=== PATIENT | male | born 1930 | race Caucasian/White ===

== ENCOUNTER → 2017-05-03 | Day surgery (SDC) | payer OTHER ==
[2017-05-02 16:45] LABS: BASOPHILS # (AUTO) 0.1 (0.0-0.1); BASOPHILS % 0.7 % (0.0-1.0); EOSINOPHILS # (AUTO) 0.4 (0.0-0.4); EOSINOPHILS % 4.4 % (0.0-6.0); HEMATOCRIT 44.4 % (38.2-49.6); HEMOGLOBIN 14.4 g/dL (14.0-18.0); LYMPHOCYTES # (AUTO) 2.2 (1.0-3.2); LYMPHOCYTES % 27.3 % (18.0-39.1); MEAN CORPUSCULAR HGB CONC 32.4 g/dL (31-35); MEAN CORPUSCULAR VOLUME 95.5 fL (81-99); MONOCYTES # (AUTO) 0.6 (0.2-0.8); MONOCYTES % 7.1 % (4.4-11.3); NEUTROPHILS # (AUTO) 4.9 (2.1-6.9); NEUTROPHILS % 60.3 % (38.7-80.0); PLATELET COUNT 248 x10e3/uL (140-360); RED BLOOD COUNT 4.65 x10e6/uL (4.3-5.7); RED CELL DISTRIBUTION WIDTH 14.2 % (11.7-14.4)
--- NOTE | 2017-05-02 16:49 | Diagnostic Imaging Report ---
PROCEDURE: Frontal and lateral views of the chest. COMPARISON: Chest radiograph 05/14/2013 INDICATIONS: PREOP - LEFT HAND SX FINDINGS: Lines/tubes: None. Lungs: The lungs are well inflated and clear. There is no evidence of pneumonia or pulmonary edema. Pleura: There is no pleural effusion or pneumothorax. Heart and mediastinum: Tortuous aorta. Otherwise, the heart and the mediastinum are unremarkable. Bones: No acute bony abnormality. IMPRESSION: No acute cardiopulmonary disease. Dictated by: Chago Mckeon M.D. on 05/02/2017 at 16:48 Electronically approved by: Chago Mckeon M.D. on 05/02/2017 at 16:48
[2017-05-02 16:55] LABS: INR 0.99; PROTHROMBIN TIME 12.3 seconds (11.9-14.5)
[2017-05-02 16:56] LABS: PARTIAL THROMBOPLASTIN TIME 33.6 seconds (23.8-35.5)
[~2017-05-03] MED LIST: ALLOPURINOL100 MG PO; ASPIRIN81 MG PO; BUPIVACAINE HCL 0.5% INJ 30 ML VIAL INJ ONE; CEFAZOLIN SOD 1 GM VIAL ONE; DESFLURANE 240 ML BTL INH ONE; DEXAMETHASONE SOD PHOS INJ 4 MG/ML VIAL ONE; FENOFIBRATE145 MG PO; FENTANYL CITRATE/PF 100MCG/2 ML INJ ONE; LIDOCAINE HCL 2% LOCAL INJ 5 ML SDV VIAL INJ ONE; ONDANSETRON HCL INJ 2 MG/ML VIAL ONE; PROPOFOL IV EMULSION 10 MG/ML 20 ML VIAL ONE
--- OUTSIDE RECORDS SUMMARY | 2017-05-03 09:44 | XMS REPORT ---
Author Author [facility] Address Unknown Phone Unavailable Care Team Providers Care Motor Vehicle License Clerk Name Role Phone PATY CRUZ Unavailable Unavailable Problems This patient has no known problems. Allergies, Adverse Reactions, Alerts This patient has no known allergies or adverse reactions. Medications This patient has no known medications. Results Test Description Test Time Test Comments Text Results Atomic Results Result Comments CHEST 2 VIEWS [place] [address] Patient Name: REHANA TIPTON MR #: [id number] : 1930 Age/Sex: 86/M Req # : [id number] Adm Physician: Ordered by: PATY CRUZ MD Report #: [id number] Location: OR Room/Bed: Procedure: [id number] DX/CHEST 2 VIEWS Exam Date: Exam Time: REPORT STATUS: Signed PROCEDURE: Frontal and lateral views of the chest. COMPARISON: Chest radiograph 05/14/2013 INDICATIONS: PREOP - LEFT HAND SX FINDINGS: Lines/tubes: None. Lungs: The lungs are well inflated and clear. There is no evidence of pneumonia or pulmonary edema. Pleura: There is no pleural effusion or pneumothorax. Heart and mediastinum: Tortuous aorta. Otherwise, the heart and the mediastinum are unremarkable. Bones: No acute bony abnormality. IMPRESSION: No acute cardiopulmonary disease. Dictated by: Chago Rosenthal M.D. on 05/02/2017 at 16:48 Electronically approved by: Chago Rosenthal M.D. on 05/02/2017 at 16:48 Dictated By: CHAGO ROSENTHAL MD [id number] Transcribed By: RENATO on 05/02/17 1648 COPY TO: PATY CRUZ MD
--- OUTSIDE RECORDS SUMMARY | 2017-05-03 09:44 | XMS REPORT | Summary of Care ---
Author Author Mary Frias Organization Unknown Address [facility] Phone Unavailable Care Team Providers Care Tailor Helper Name Role Phone PHYLICIA LEDESMA N.P. Unavailable Unavailable Mary Frias Unavailable Unavailable HEATHER DEGROOT [place], CALE [place] Unavailable Unavailable CALE ROMERO M.D. Unavailable Unavailable Unavailable Functional Status Name Dates Details Functional status health issues are not documented Status: Name Dates Details Cognitive status health issues are not documented Status: Problems Name Dates Details Abdominal pain (789.00, R10.9) Status: Active Gallbladder disease (575.9, K82.9) Status: Active Acute upper respiratory infection (465.9, J06.9) Status: Active Joint pain of lower extremity (719.48, M25.50) Status: Active Need for immunization against influenza (V04.81, Z23) Status: Active Sinusitis, acute (461.9, J01.90) Status: Active Allergic rhinitis (477.9, J30.9) Status: Active Decreased renal function (593.9, N28.9) Status: Active Counseling regarding advanced directives (V65.49, Z71.89) Status: Active Penile rash (607.9, R21) Status: Active Effusion of right elbow (719.02, M25.421) Status: Active Left elbow pain (719.42, M25.522) Status: Active Olecranon bursitis of right elbow (726.33, M70.21) Status: Active Seborrheic keratoses, inflamed (702.11, L82.0) Status: Active Excessive ear wax, left (380.4, H61.22) Status: Active Acute gastritis without bleeding (535.00, K29.00) Status: Active Annual physical exam (V70.0, Z00.00) Status: Active Hyperlipidemia (272.4, E78.5) Status: Active 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 Active Fenofibrate Micronized 134 MG Oral Capsule TAKE 1 CAPSULE BY MOUTH DAILY AT BEDTIME * Quantity: 90 Refills: 1 LEDESMA N.P., PHYLICIA * Start : 26-Feb-2014 Active Allopurinol 100 MG Oral Tablet TAKE ONE TABLET BY MOUTH DAILY. * Quantity: 90 Refills: 1 LEDESMA N.P., PHYLICIA Active Allergies and Adverse Reactions Name Dates Details Naproxen TABS (Allergy) Status: Active Past Medical History Name Dates Details History of Cellulitis (682.9, L03.90) Status: Resolved History of hypercholesterolemia (V12.29, Z86.39) Status: Resolved History of transient cerebral ischemia (V12.54, Z86.73) Status: Resolved Procedures Procedure Dates Details History of Tonsillectomy With Adenoidectomy Completed History of Cholecystectomy Completed 16-May-2013 Immunization Name Dates Details Influenza on: 12-Dec-2011 Fluzone INJ Lot #: [id number] on: 02-Dec-2012 Fluzone INJ Lot #: [id number] on: 29-Dec-2013 Fluvirin INJ Lot #: [id number] on: 02-Dec-2014 Prevnar 13 Intramuscular Suspension Lot #: [id number] on: 27-May-2015 Fluzone INJ Lot #: [id number] on: 17-Dec-2015 Fluzone High-Dose 0.5 ML Intramuscular Suspension Prefilled Syringe Lot #: [id number] on: 25-Jan-2017 Pneumovax 23 25 MCG/0.5ML Injection Injectable Lot #: [id number] on: 25-Jan-2017 Family History Name Dates Details Family history of Emphysema Status: Active Social History Name Dates Details - Status: Name Dates Details Former smoker Vital Signs Date Test Result Details [id number] BP Systolic 121 mm[Hg] Status: Comments: Location: LUE; Position: Sitting BP Diastolic 64 mm[Hg] Status: Comments: Location: LUE; Position: Sitting Height 70 in Status: Weight 172.2 lb Status: Body Mass Index Calculated 24.71 kg/m2 Status: Body Surface Area Calculated 1.96 m2 Status: Temperature 97.1 f Status: Comments: Method: Oral Respiration Rate 16 /min Status: Heart Rate 55 /min Status: Results Date Description Value Details [id number] US Scrotal testicle US and scrotal doppler [id number] Scrotal testicle US and scrotal doppler US SEE NOTES Comments: EXAM: US SCROTUM WITH DOPPLERDATE: 03/21/2017 1:40 PM CSTINDICATION: N39.0 Urinary tract infection, site not specified; N45.3 Epididymo-orchitis - N39.0 Urinary tract infection, site not specified; N45.3 Epididymo-orchitisADDITIONAL INFORMATION: None.COMPARISON: None.TECHNIQUE: Multiplanar grayscale, color Doppler and spectral Doppler ultrasoundof the scrotum and testes. FINDINGS: There is symmetric testicular color doppler flow.Right testicle: Size: 3.8 x 4.3 x 2.5 cm Echogenicity: Mildly heterogeneous. Calcifications: None. Cysts : None. Masses: None. Doppler: Normal.Right epididymis: Size: 1.5 x 1.1 x 0.9 cm Echogenicity: Increased. Calcifications: None. Cysts: None. Masses : None. Doppler: Mildly increased. Epididymis Body and Tail: Normal.Right hydrocele: Minimal.Right varicocele: None.Right hernia: None.Left testicle: Size: 3.6 x 5.0 x 2.7 cm Echogenicity: Normal. Calcifications: None. Cysts: None. Masses: None. Doppler: Mildly increased.Left epididymis: Size: 1.5 x 1.8 x 4.3 cm Echogenicity: Increased Calcifications: None. Cysts: 1.7 x 1.1 x 1.7. Masses: None. Doppler: Increased color Doppler flow. Epididymis Body and Tail: Diffusely thickened and hypoechoic. There is a2.3 x 1.4 x 2.2 cm simple epididymal cyst within the tail.Left hydrocele: Septated hydrocele.Left varicocele: Mild.Left hernia: None.IMPRESSION:1. Moderate diffuse increased epididymal color Doppler flow most intenselywithin the tail and moderately within the body and head of the left epididymisconsistent with epididymitis.2. There is significant increase in size of the left epididymis with increasedechotexture and increased color Doppler flow.3. Mild increased color Doppler flow within the left testis. Findingsconsistent with mild orchitis.4. Septated left hydrocele.5. Left epididymal head and tail simple cysts. Smaller cysts are also seen.6. Heterogeneous right testis suggesting mild atrophy, possibly secondary toprior ischemic event.--Read by: Dionicio He MDDictated Date/time: 03/21/17 15:18Electronically Signed by: Dionicio He MD 03/21/1814:34FINAL REPORT [id number] [O] Urine Dipstick (In Office) LEUKOCYTES TRACE NITRITE NEGATIVE (Normal) UROBILINOGEN NEGATIVE (Normal) PROTEIN NEGATIVE (Normal) pH 7 (Normal) URINE BLOOD 250+ (Abnormal) SPECIFIC GRAVITY 1.010 (Normal) KETONES NEGATIVE (Normal) BILIRUBIN NEGATIVE (Normal) GLUCOSE NEGATIVE (Normal) COLOR URINE YELLOW (Normal) APPEARANCE CLEAR (Normal) Plan of Care Name Dates Details Planned Observations Planned Goals not documented Planned Encounters Appointment; CALE ROMERO M.D. On: 04-Oct-2017 11:00 Instructions Name Dates Details Instructions not documented Encounters Appointment; PHYLICIA LEDESMA NP Encounter Diagnosis: Problem not documented On: 27-May-2015 10:00 Appointment; PHYLICIA LEDESMA NP Encounter Diagnosis: Problem not documented On: 13-Sep-2015 13:30 Appointment; PHYLICIA LEDESMA NP Encounter Diagnosis: Problem not documented On: 27-Sep-2015 8:15 Appointment; RILEY HENSLEY M.D. Encounter Diagnosis: Problem not documented On: 30-Sep-2015 7:15 Appointment; RILEY HENSLEY M.D. Encounter Diagnosis: Problem not documented On: 25-Nov-2015 9:00 Appointment; PHYLICIA LEDESMA NP Encounter Diagnosis: Problem not documented On: 17-Dec-2015 12:15 Appointment; CALE ROMERO M.D. Encounter Diagnosis: Problem not documented On: 14-Apr-2016 14:45 Appointment; DANITA BISHOP M.D. Encounter Diagnosis: Problem not documented On: 19-Apr-2016 15:00 Appointment; PHYLICIA LEDESMA NP Encounter Diagnosis: Problem not documented On: 25-Jan-2017 9:30 Appointment; ABDIAZIZ DORADO M.D. Encounter Diagnosis: Problem not documented On: 29-Jan-2017 14:00 Appointment; PHYLICIA LEDESMA NP Encounter Diagnosis: Problem not documented On: 15-Mar-2017 11:45 Appointment; CALE ROMERO M.D. Encounter Diagnosis: Problem not documented On: 20-Mar-2017 14:45 Appointment; CALE ROMERO M.D. Encounter Diagnosis: Problem not documented On: 06-Apr-2017 15:30
--- NOTE | 2017-05-03 12:38 | Operative Report ---
DATE OF PROCEDURE: May 03, 2017 PREOPERATIVE DIAGNOSIS: Left carpal tunnel syndrome. POSTOPERATIVE DIAGNOSIS: Left carpal tunnel syndrome. PROCEDURE: Left carpal tunnel release. ANESTHESIA: General. INDICATIONS: Patient is a man who presents with severe left carpal tunnel syndrome. He was taken to the operating room for left carpal tunnel release. PROCEDURE: After induction of anesthesia, the patient was placed on the operating table in supine position. The left arm was abducted over a hand table. The left hand, wrist, and forearm were prepped and draped circumferentially in sterile fashion. A tourniquet was inflated. A small midline incision was created over the median palmar crease of the hand and just distal to the distal flexor crease of the wrist. The subcutaneous fat was divided. Transverse carpal ligament was identified and incised with a #15 C-blade until the underlying median nerve came into view. As the ex assistant/program director retracted the skin edges, the transverse carpal ligament was divided proximally and distally until the full length of the median nerve within the carpal tunnel was released and decompressed. Meticulous hemostasis was secured. The subcutaneous layer was closed with a 3-0 Vicryl suture. The skin was closed with a 3-0 nylon suture in a horizontal mattress fashion. A dressing was applied. The patient was awakened and extubated and taken to postanesthesia care unit in stable condition. No intraoperative complications were encountered. Estimated blood loss was minimal. Job#: [id number] [facility]
== END | disposition home or self-care (01) ==
LOC: OR 09:42
PROVIDERS: ATTEND Neurological Surgery
DX: G56.02 Carpal tunnel syndrome, left upper limb (principal); M10.9 Gout, unspecified; I10 Essential (primary) hypertension; R00.1 Bradycardia, unspecified; Z01.810 Encounter for preprocedural cardiovascular examination; Z01.812 Encounter for preprocedural laboratory examination; Z01.818 Encounter for other preprocedural examination; Z79.82 Long term (current) use of aspirin; Z86.73 Personal history of transient ischemic attack (TIA), and cerebral infarction without residual deficits; Z87.891 Personal history of nicotine dependence
CPT/HCPCS: 36415; 64721; 71046; 85025; 85610; 85730; 93005; J0690; J1100; J2001; J2405